=== PATIENT | male | born 1955 | race Caucasian/White ===

== ENCOUNTER 2017-08-12 22:50 | Inpatient (IN) | payer BC, MEDICAID ==
[~2017-08-12] VITALS: Ht 162.6 cm; Wt 37.2 kg
--- NOTE | 2017-08-12 23:01 | NUR ---
DR RIGOBERTO BRYANT MD AT BEDSIDE FOR MSE.
[2017-08-12] MEDS ORDERED: IV NORMAL SALINE 1000 ML BAG IV ONE (23:15)
[2017-08-12] MEDS ORDERED: LISI-603 PO (23:20)
[2017-08-12] MEDS ORDERED: NAPR-1009 PO (23:20)
[2017-08-12] MEDS ORDERED: ASPI81TA31 PO (23:20)
[2017-08-12] MEDS ORDERED: TRAM50TA2 PO (23:20)
[2017-08-12] MEDS ORDERED: METO50TA16 PO (23:20)
[2017-08-12] MEDS ORDERED: ONDA8TAB6 PO (23:20)
[2017-08-12] MEDS ORDERED: PARO20TA7 PO (23:20)
[2017-08-12] MEDS ORDERED: TAMS0.4C34 PO (23:20)
--- NOTE | 2017-08-12 23:32 | NUR ---
RADIOLOGY AT BEDSIDE FOR CHEST XRAY
[2017-08-12 23:41] LABS: BASOPHILS % (AUTO) 0.1 % (0.0-2.0); HEMATOCRIT 43.5 % (36.7-47.1); HEMOGLOBIN 14.5 g/dL (12.5-16.3); LYMPHOCYTES # (AUTO) 0.2 K/uL (20.0-40.0); LYMPHOCYTES % (AUTO) 2.2 % (20.5-51.5); MEAN CORPUSCULAR HEMOGLOBIN 27.3 uug (23.8-33.4); MEAN CORPUSCULAR HGB CONC 33 g/dL (32.5-36.3); MEAN CORPUSCULAR VOLUME 82.2 fL (73.0-96.2); MONOCYTES # (AUTO) 0.3 K/uL (2.0-10.0); MONOCYTES % (AUTO) 3.3 % (0.0-11.0); NEUTROPHILS # (AUTO) 9.4 K/uL (1.8-8.9); NEUTROPHILS % (AUTO) 94.4 % (38.5-71.5); PLATELET COUNT (AUTO) 515 K/uL (152-348); WHITE BLOOD COUNT (AUTO) 9.9 K/uL (3.6-10.2)
[2017-08-12] MEDS ORDERED: CEFTRIAXONE 1 G in IV DEXTROSE 5% 50 ML IV ONE (23:45)
[2017-08-12] MEDS ORDERED: FAMOTIDINE. 20 MG/2 ML VIAL IV ONE ×2 (23:45→23:54)
[2017-08-12] MEDS ORDERED: AZITHROMYCIN IV 500 MG in IV DEXTROSE 5% 250 ML IV ONE (23:45)
[2017-08-12] MEDS ORDERED: CEFTRIAXONE 1 G VIAL ONE (23:54)
[2017-08-12] MEDS ORDERED: AZITHROMYCIN 500 MG VIAL IV ONE (23:54)
[2017-08-13] VITALS (19 sets, daily range): BP systolic 88–140; BP diastolic 51–90
[2017-08-13 00:09] LABS: CREATININE 1.5 mg/dL (0.6-1.3); POTASSIUM 4.2 mmol/L (3.5-5.1)
--- NOTE | 2017-08-13 00:11 | NUR ---
RT AT BEDSIDE FOR BREATHING TREATMENT
[2017-08-13] MEDS ORDERED: ALBUTEROL SULFATE 2.5 MG/3 ML NEBU ONE (00:12)
[2017-08-13] MEDS ORDERED: ALBUTEROL SULFATE 2.5 MG/3 ML NEBU NEB ONE (00:15)
[2017-08-13 00:23] LABS: BILIRUBIN,DIRECT 0.2 mg/dL (0.0-0.2); BILIRUBIN,TOTAL 0.4 mg/dL (0.2-1.0); TOTAL PROTEIN, SERUM 8.3 g/dL (6.4-8.2)
--- NOTE | 2017-08-13 00:53 | NUR ---
RT AT BEDSIDE FOR SUCTIONING.
--- NOTE | 2017-08-13 01:22 | NUR ---
RT AT BEDSIDE FOR ABG.
[2017-08-13 01:37] LABS: ABG BASE EXCESS -6.9 mmol/L; ABG HCO3 17.5 mmol/L; ABG PCO2 31.7 mmHg (35.0-45.0); ABG PH 7.361 (7.350-7.450); ABG PO2 61.1 mmHg (75.0-100.0); ABG SITE RIGHT RADIAL; ABG TOTAL HEMOGLOBIN 11.8 G/dL (13.5-18.0); COHb 0.9 % (0.5-1.5); MetHb 0.5 % (0.0-1.5); O2Hb 87.9 % (94.0-97.0); VENT MODE COOL AEROSOL
--- NOTE | 2017-08-13 01:43 | NUR ---
PT USING BEDPAN INDEPENDENTLY. NO DISTRESS NOTED.
[2017-08-13] MEDS ORDERED: IV NORMAL SALINE 1000 ML BAG IV ONE (02:00)
[2017-08-13] MEDS ORDERED: IV NORMAL SALINE 100 ML ONE (02:10)
[2017-08-13] MEDS ORDERED: SWABABLE VALVE TRANSFER SET EA MC ONE (02:10)
[2017-08-13] MEDS ORDERED: IOHEXOL 350 100 ML INFUS..BTL ONE (02:10)
[2017-08-13] MEDS ORDERED: NORMAL SALINE FLUSH 10 ML DISP.SYRIN ONE (02:10)
--- NOTE | 2017-08-13 02:26 | NUR ---
PT TAKEN TO CT VIA GURNEY. CONSENT OBTAINED. NO ACUTE DISTRESS NOTED.
--- NOTE | 2017-08-13 02:51 | NUR ---
PT BACK IN ROOM FROM CT. RT AT BEDSIDE FOR SUCTIONING.
[2017-08-13] MEDS ORDERED: ENOXAPARIN SODIUM 40 MG/0.4 ML DISP.SYRIN SQ ONE ×2 (03:50→04:00)
[2017-08-13] MEDS ORDERED: VANCOMYCIN IV 1 G in PREMIXED 0 EACH IV SCH (04:00)
[2017-08-13] MEDS ORDERED: ACETAMINOPHEN 325 MG TABLET PO PRN (04:00)
[2017-08-13] MEDS ORDERED: ONDANSETRON 4 MG/2 ML VIAL IV PRN (04:00)
[2017-08-13] MEDS ORDERED: ENOXAPARIN SODIUM 40 MG/0.4 ML DISP.SYRIN SQ SCH (04:00)
--- NOTE | 2017-08-13 04:03 | NUR ---
REPORT GIVEN TO CRISTOFER MONGE.
--- NOTE | 2017-08-13 05:01 | NUR ---
Pt. admitted to CCU, under care of Dr. HAWKINS Belongs List completed
--- NOTE | 2017-08-13 05:10 | NUR ---
ADMITTED FROM ER VIA [facility] AAOX4, W/ ADMITTING DX OF SEPSIS, RESP. FAILURE.ATTACHED TO BEDSIDE MONITORING. SUCTIONED VIA TRACH W/ MOD. PALE YELLOWISH MUCOUS, ON O2 @ 60% TRACH MIST W/ O2 SAT OF 92%. REPOSITIONED W/ HOB ELEVATED.
[2017-08-13] MEDS: IV D5 1/2 NS 1000 ML 1,000 ML IV PRN ×2 (05:25→15:49)
[2017-08-13] MEDS: ENOXAPARIN SODIUM 30 MG/0.3 ML DISP.SYRIN SUBCUT SCH (05:26)
[2017-08-13] MEDS ORDERED: VANCOMYCIN 1000 MG VIAL ONE (05:28)
[2017-08-13] MEDS ORDERED: PIPERACILLIN/TAZOBACTAM/D5W 50 ML ONE (05:29)
[2017-08-13] MEDS: PIPERACILLIN/TAZO 2.25 G in IV DEXTROSE 5% 50 ML IV SCH ×4 (05:43→23:16)
[2017-08-13] MEDS ORDERED: NORMAL SALINE FLUSH 10 ML DISP.SYRIN IV PRN (06:00)
[2017-08-13] MEDS ORDERED: VANCOMYCIN IV 750 MG in IV DEXTROSE 5% 250 ML IV ONE (06:00)
--- NOTE | 2017-08-13 06:00 | NUR ---
LOVENOX NOT GIVEN @ 0600, DOSE GIVEN @ 0500 IN ER.
[2017-08-13] MEDS: ALBUTEROL SULFATE 2.5 MG/3 ML NEBU NEB SCH ×5 (07:15→23:00)
[2017-08-13] MEDS ORDERED: Z GUARD REMEDY PASTE 57 GM TUBE TOP PRN (07:15)
--- NOTE | 2017-08-13 07:30 | NUR ---
report received from Jackie CLEVELAND. 62 yr old male admitted on 08/13/17 for sepsis, resp failure. alert and communicative, has a tracheal stoma. hx of ca of the throat and HTn. IV fluid D5 1/2 NS at 125 ml/hr Addendum: 08/13/17 at 1507 by ANIL BARCENAS RN Amended: Links added.
[2017-08-13] MEDS: ACETYLCYSTEINE 20% 800 MG/4 ML VIAL NEB SCH ×3 (07:45→23:00)
--- NOTE | 2017-08-13 09:01 | NUR ---
MM MED NOT GIVEN. AM TX WAS GIVEN AT 0715. MM ORDER PLACED @ 0745
[2017-08-13] MEDS: ASPIRIN 81 MG TAB.CHEW PO SCH (09:28)
[2017-08-13] MEDS: PANTOPRAZOLE SODIUM 40 MG VIAL IV SCH (09:28)
[2017-08-13] MEDS: TRAMADOL HCL 50 MG TABLET PO SCH ×3 (09:29→17:00)
[2017-08-13] MEDS: Z GUARD REMEDY PASTE 57 GM TUBE TOP SCH ×2 (09:31→20:27)
[2017-08-13] MEDS: IV NORMAL SALINE 500 ML IV ONE ×2 (11:45→12:25)
[2017-08-13 13:43] LABS: THYROID STIMULATING HORMONE 5.319 mIU/mL (0.358-3.740)
--- NOTE | 2017-08-13 14:26 | NUR ---
Clinical pharmacy note-Vancomycin dosing per pharmacy Subjective: To start Vancomycin dosing on this patient for sepsis secondary to PNA. Objective: BUN 59 Scr 1.5 WBC 9.9 Temp 98.7 Ht 162.56 cm Wt 37.195kg(verified with nurse) Assessment/Plan: Patient was given Vancomycin 750mg IV x1 today at 0542. Since renal function is unstable, will dose by fall-off random level for now(level is due for tomorrow am). Will follow the level for further dosing.
[2017-08-13 17:04] LABS: PRE ALBUMIN 11.3 MG/DL (18.0-35.7)
--- NOTE | 2017-08-13 18:00 | NUR ---
patient very independent as far as self care but refused 1200 and 1700 meds thru gt. seen by , expressed desire to transfer patient to [facility]. referred to case folder. patient also refused to have pm care. . voiding freely to a urinal. no need to be suctioned throughout day shift.
[2017-08-13] MEDS: TAMSULOSIN HCL 0.4 MG CAP.SR.24H PO SCH ×3 (20:29→21:00)
[2017-08-14] VITALS (19 sets, daily range): BP systolic 93–134; BP diastolic 59–78
[2017-08-14] MEDS: IV D5 1/2 NS 1000 ML 1,000 ML IV PRN (01:29)
[2017-08-14] MEDS: ALBUTEROL SULFATE 2.5 MG/3 ML NEBU NEB SCH ×6 (04:07→23:06)
[2017-08-14] MEDS: PIPERACILLIN/TAZO 2.25 G in IV DEXTROSE 5% 50 ML IV SCH ×3 (05:43→16:57)
[2017-08-14 05:45] LABS: BASOPHILS % (AUTO) 0.1 % (0.0-2.0); EOSINOPHILS % (AUTO) 0.3 % (0.0-7.0); HEMATOCRIT 33.8 % (36.7-47.1); HEMOGLOBIN 11.1 g/dL (12.5-16.3); LYMPHOCYTES # (AUTO) 0.4 K/uL (20.0-40.0); MEAN CORPUSCULAR HGB CONC 33 g/dL (32.5-36.3); MEAN CORPUSCULAR VOLUME 82.1 fL (73.0-96.2); MONOCYTES # (AUTO) 0.2 K/uL (2.0-10.0); MONOCYTES % (AUTO) 2.3 % (0.0-11.0); NEUTROPHILS # (AUTO) 9.4 K/uL (1.8-8.9); NEUTROPHILS % (AUTO) 93.3 % (38.5-71.5); PLATELET COUNT (AUTO) 370 K/uL (152-348); RED BLOOD CELL COUNT(AUTO) 4.12 MIL/uL (4.06-5.63)
[2017-08-14 05:50] LABS: CREATININE 1.1 mg/dL (0.6-1.3); MAGNESIUM 1.4 mg/dL (1.8-2.4); PHOSPHOROUS 2.4 mg/dL (2.5-4.9)
[2017-08-14 06:12] LABS: POTASSIUM 2.5 mmol/L (3.5-5.1)
--- NOTE | 2017-08-14 07:15 | NUR ---
K+ 2.5 reported to Pharmacist.
[2017-08-14] MEDS: ACETYLCYSTEINE 20% 800 MG/4 ML VIAL NEB SCH ×3 (08:00→23:06)
[2017-08-14] MEDS ORDERED: VANCOMYCIN IV 500 MG in IV DEXTROSE 5% 100 ML IV ONE (08:30)
[2017-08-14] MEDS: TRAMADOL HCL 50 MG TABLET PO SCH ×4 (09:00→18:59)
[2017-08-14] MEDS: PANTOPRAZOLE SODIUM 40 MG VIAL IV SCH ×2 (09:08→09:12)
[2017-08-14] MEDS: ASPIRIN 81 MG TAB.CHEW PO SCH ×2 (09:08→09:14)
[2017-08-14] MEDS: ENOXAPARIN SODIUM 30 MG/0.3 ML DISP.SYRIN SUBCUT SCH (09:33)
[2017-08-14] MEDS ORDERED: POTASSIUM CHLORIDE 50 ML IV SCH (11:15)
[2017-08-14] MEDS ORDERED: POTASSIUM PHOSPHATE MM 5 MMOL in IV DEXTROSE 5% 100 ML IV SCH (11:15)
--- NOTE | 2017-08-14 11:30 | NUR ---
seen by dr sanchez with new orders Addendum: 08/14/17 at 1941 by ANIL BARCENAS RN Amended: Daniel added. Addendum: 08/14/17 at 1943 by ANIL BARCENAS RN Amended: Daniel added. Addendum: 08/14/17 at 1944 by ANIL BARCENAS RN Amended: Links added.
--- NOTE | 2017-08-14 12:00 | NUR ---
seen by dr curtis with new orders Addendum: 08/14/17 at 1944 by ANIL BARCENAS RN Amended: Links added.
[2017-08-14] MEDS ORDERED: POTASSIUM CHLORIDE 20 MEQ POWDER PACKET PO ONE ×2 (12:43→15:00)
[2017-08-14] MEDS: MAGNESIUM SULFATE/D5W 100 ML IV SCH ×3 (13:16→21:14)
[2017-08-14] MEDS: POTASSIUM CHLORIDE 40 MEQ in IV D5 1/2 NS 1000 ML 1,000 ML IV PRN (14:17)
[2017-08-14] MEDS: POTASSIUM PHOSPHATE MM 5 MMOL in IV DEXTROSE 5% 100 ML IV SCH ×4 (14:39→21:05)
[2017-08-14] MEDS: Z GUARD REMEDY PASTE 57 GM TUBE TOP SCH ×2 (14:42→21:06)
--- NOTE | 2017-08-14 15:00 | NUR ---
seen by dr ames. no orders. prefers to keep patient in CCU till bronchoscopy plan Addendum: 08/14/17 at 1942 by ANIL BARCENAS RN Amended: Links added. Addendum: 08/14/17 at 1943 by ANIL BARCENAS RN Amended: Links added.
--- NOTE | 2017-08-14 16:10 | NUR ---
Clinical pharmacy note-Vancomycin dosing per pharmacy Subjective: To continue Vancomycin dosing on this patient for sepsis secondary to PNA. Objective: BUN 24 Scr 1.1 WBC 10.0 Temp 97.4 Ht 162.56 cm Wt 37.195kg(verified with nurse) Vancomycin random today at 0600:6.7 Assessment/Plan: Since trough is subtherapeutic, [id number] was given today at 0915. Will continue to dose by fall-off random level for now due to unstable renal function(ordered for tomorrow at 0600). Will follow the level for further dosing.
--- NOTE | 2017-08-14 19:30 | NUR ---
rounds made patient in bed ,resting aaox4.able to communicate by hand sign and writing ,patient at bedside help with care . resisted ivf helpocik its leaking place another ivf access to his right upper arm # 22,urinal placed with in reach .
[2017-08-14 19:43] LABS: *BILIRUBIN,URIN NEGATIVE (NEGATIVE); *BLOOD, URINE Trace-intact (NEGATIVE); *CLARITY,URINE CLEAR (CLEAR); *COLOR,URINE YELLOW (YELLOW); *KETONES,URINE NEGATIVE (NEGATIVE); *PROTEIN,URINE TRACE (NEGATIVE); *UROBILINOGEN,URINE 0.2 E.U./dl (NORMAL); LEUKOCYTE ESTERASE ,URINE NEGATIVE (NEGATIVE); NITRITE, URINE NEGATIVE (NEGATIVE); PH,URINE 6.5 (5.0-8.0); UGLUCOSE NEGATIVE (NEGATIVE)
[2017-08-14 19:50] LABS: RBC,URINE 0-3 /HPF (0-3); WBC,URINE 0-3 /HPF (0-3)
[2017-08-14 19:51] LABS: COARSE GRANULAR CASTS,URINE 0-3 /LPF; MUCUS,URINE FEW /LPF (0-FEW)
[2017-08-14] MEDS: TAMSULOSIN HCL 0.4 MG CAP.SR.24H PO SCH (21:00)
--- NOTE | 2017-08-14 21:14 | NUR ---
given magnesium sulfate total of 3 bags .
[2017-08-14] MEDS ORDERED: MAGNESIUM SULFATE/D5W 100 ML ONE (21:17)
[2017-08-15] VITALS (16 sets, daily range): BP systolic 116–141; BP diastolic 59–96
--- NOTE | 2017-08-15 02:00 | NUR ---
with another RN changed soiled linens and gown . z guard applied to sacral area .turned and reposition .hob up and elevated upper and lower extremities with pillows .
[2017-08-15] MEDS: PIPERACILLIN/TAZO 2.25 G in IV DEXTROSE 5% 50 ML IV SCH ×3 (02:50→12:25)
[2017-08-15] MEDS: POTASSIUM CHLORIDE 40 MEQ in IV D5 1/2 NS 1000 ML 1,000 ML IV PRN ×2 (02:51→20:57)
[2017-08-15] MEDS: ALBUTEROL SULFATE 2.5 MG/3 ML NEBU NEB SCH ×7 (03:52→23:11)
--- NOTE | 2017-08-15 04:08 | NUR ---
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 Marianna LERMA RCP Addendum: 08/15/17 at 0410 by BRIE LERMA RT Amended: Links added.
--- NOTE | 2017-08-15 04:47 | NUR ---
patient refused lab draw /am labs . even with teaching ,will follow up later and asked stretcher drier operator to come back later .
[2017-08-15] MEDS: ACETYLCYSTEINE 20% 800 MG/4 ML VIAL NEB SCH ×4 (07:34→23:11)
--- NOTE | 2017-08-15 07:54 | NUR ---
PATIENT REFUSED CPT PER RT.
--- NOTE | 2017-08-15 09:30 | NUR ---
MORTEZA IN UNIT TO SEE PATIENT.
[2017-08-15] MEDS: TRAMADOL HCL 50 MG TABLET PO SCH ×4 (09:51→17:00)
[2017-08-15] MEDS: Z GUARD REMEDY PASTE 57 GM TUBE TOP SCH ×2 (09:51→21:08)
[2017-08-15] MEDS: ENOXAPARIN SODIUM 40 MG/0.4 ML DISP.SYRIN SQ SCH (09:52)
--- NOTE | 2017-08-15 10:00 | NUR ---
DOCTOR PRO SPOKE TO PATIENT REGARDING REFUSAL OF CARE. PATIENT ALLOWED FOR CHEST XRAY AND LAB DRAWS.
[2017-08-15 11:06] LABS: BASOPHILS % (AUTO) 0.1 % (0.0-2.0); EOSINOPHILS # (AUTO) 0.1 K/uL (0.0-0.7); EOSINOPHILS % (AUTO) 0.8 % (0.0-7.0); HEMATOCRIT 34.6 % (36.7-47.1); HEMOGLOBIN 11.3 g/dL (12.5-16.3); LYMPHOCYTES # (AUTO) 0.5 K/uL (20.0-40.0); LYMPHOCYTES % (AUTO) 4.7 % (20.5-51.5); MEAN CORPUSCULAR HEMOGLOBIN 26.7 uug (23.8-33.4); MEAN CORPUSCULAR HGB CONC 33 g/dL (32.5-36.3); MEAN CORPUSCULAR VOLUME 81.5 fL (73.0-96.2); MONOCYTES # (AUTO) 0.3 K/uL (2.0-10.0); MONOCYTES % (AUTO) 2.5 % (0.0-11.0); NEUTROPHILS % (AUTO) 91.9 % (38.5-71.5); PLATELET COUNT (AUTO) 385 K/uL (152-348); RED BLOOD CELL COUNT(AUTO) 4.25 MIL/uL (4.06-5.63); WHITE BLOOD COUNT (AUTO) 10.9 K/uL (3.6-10.2)
[2017-08-15 11:49] LABS: CREATININE 0.8 mg/dL (0.6-1.3); PHOSPHOROUS 2.3 mg/dL (2.5-4.9); POTASSIUM 3.7 mmol/L (3.5-5.1)
--- NOTE | 2017-08-15 12:04 | NUR ---
BOTH PATIENT AND WILL REFUSE BRONCHOSCOPY IF NEEDED.
[2017-08-15] MEDS ORDERED: VANCOMYCIN IV 500 MG in IV DEXTROSE 5% 100 ML IV ONE (13:00)
[2017-08-15] MEDS ORDERED: POTASSIUM PHOSPHATE MM 7.5 MMOL in IV DEXTROSE 5% 100 ML IV ONE (13:15)
--- NOTE | 2017-08-15 13:23 | NUR ---
PT's at bedside and she's refusing her to get scheduled Ultram. when pt informed that schedule ultram is about to be administered patient agreed. Medications not administered and wasted cause it was open and crushed already when refused.
--- NOTE | 2017-08-15 14:00 | NUR ---
DOCTOR BUNNY IN THE UNIT SPOKE TO BOTH PATIENT AND REGARDING UPDATE AND PLAN OF CARE.
--- NOTE | 2017-08-15 14:42 | NUR ---
Clinical pharmacy note-Vancomycin dosing per pharmacy Subjective: To continue Vancomycin dosing on this patient for sepsis secondary to PNA. Objective: BUN 9 Scr 0.8 WBC 10.9 Temp 97.8 Ht 162.56 cm Wt 37.195kg(verified with nurse) [place] [address](originally ordered at 0600 but patient refused):5.8 Assessment/Plan: Since trough is under 20, Vancomycin [id number] was given today at 1300. Will start Vancomycin 500mg IV every 18hrs(second dose tomorrow at 0700) and draw trough by 4th dose(not ordered yet) for expected trough around 15. Will monitor daily.
--- NOTE | 2017-08-15 17:17 | NUR ---
REPORT GIVEN TO LORENE CLEVELAND.
[2017-08-15] MEDS ORDERED: VITAL AF 1.2 1,000 ML LIQUID GT PRN (17:30)
[2017-08-15] MEDS: PIPERACILLIN/TAZOBACTAM/D5W 50 ML IV SCH ×2 (17:33→23:53)
--- NOTE | 2017-08-15 18:30 | NUR ---
RECEIVED PATIENT TRANSFER FROM CCU 62 YEARS OLD MALE BY BED TO ROOM 217 FIXED AND MADE COMFORTABLE PATIENT IS ALERT AND ORIENTED BUT IS NON VERBAL USES HIS HANDS/GESTURES AND WRITING TO MAKE HIS NEEDS KNOWN ON COOL MIST AEROSOL WITH NO SHORTNESS OF BREATH AT THIS TIME. JESÚS UP WITH GT FEEDINGS AT 20 ML/HR TOLERATING WELL WITH NO REGURGITATION AT THIS TIME.IVF IS IN PROGRESS ORDERED.PATIENT ORIENTED TO ROOM AND MED/SURG/TELEMETRY PROTOCOL AND EXPRESSED UNDERSTANDING TELEMETRY ORDERED SR WITH NO ECTOPY NOT IN DISTRESS AT THIS TIME.
--- NOTE | 2017-08-15 20:00 | NUR ---
Received patient laying comfortably in bed. HOB elevated. No acute distress noted. Denies pain or SOB. Family at bedside. A/O x 3 but unable to talk due to a hx of laryngectomy. He makes his needs known by writing on the board or making hand gestures and blinks eye. Patient is on cool mist aerosol. TELE SR. IV on the left FA patent and intact. On air mattress. Lau draining yellow and clear urine. Safety initiated. Call light within reach. Will closely monitor.
[2017-08-15] MEDS: TAMSULOSIN HCL 0.4 MG CAP.SR.24H PO SCH (20:57)
[2017-08-16 00:07] VITALS: BP 125/91
[2017-08-16] MEDS: ALBUTEROL SULFATE 2.5 MG/3 ML NEBU NEB SCH ×6 (03:02→23:21)
[2017-08-16] MEDS: PIPERACILLIN/TAZOBACTAM/D5W 50 ML IV SCH ×3 (05:16→17:16)
--- NOTE | 2017-08-16 05:32 | NUR ---
Patient slept intermittently t/o shift. HOB remains elevated. No acute distress noted. Denies pain or SOB. A/O x 3 but unable to talk due to a hx of laryngectomy. He makes his needs known by writing on the board or making hand gestures and blinks eye. Patient has a neck stoma that appears pink and moist. NPO status maintained. Patient is on cool mist aerosol. TELE SR. IV on the left FA patent and intact. On air mattress. Patient's urine out put is ok. He urinates on the urinal. Refused flomax. Vital signs stable. Safety and comfort measures maintained t/o shift. All meds given as ordered. All needs met. Bed alarm on. Bed in low and locked position.
[2017-08-16 06:11] VITALS: BP 131/80
[2017-08-16 06:40] LABS: BASOPHILS % (AUTO) 0.2 % (0.0-2.0); EOSINOPHILS # (AUTO) 0.1 K/uL (0.0-0.7); HEMOGLOBIN 12.1 g/dL (12.5-16.3); LYMPHOCYTES # (AUTO) 0.5 K/uL (20.0-40.0); LYMPHOCYTES % (AUTO) 3.9 % (20.5-51.5); MEAN CORPUSCULAR HEMOGLOBIN 26.9 uug (23.8-33.4); MEAN CORPUSCULAR HGB CONC 33 g/dL (32.5-36.3); MEAN CORPUSCULAR VOLUME 82.2 fL (73.0-96.2); MONOCYTES # (AUTO) 0.3 K/uL (2.0-10.0); MONOCYTES % (AUTO) 2.9 % (0.0-11.0); NEUTROPHILS # (AUTO) 11.2 K/uL (1.8-8.9); PLATELET COUNT (AUTO) 377 K/uL (152-348); WHITE BLOOD COUNT (AUTO) 12.1 K/uL (3.6-10.2)
[2017-08-16] MEDS: PANTOPRAZOLE SODIUM 40 MG VIAL IV SCH (06:45)
--- NOTE | 2017-08-16 06:45 | NUR ---
Patient refused protonix IV. Noted left cheek redness. Mepilex in place. Turn and reposition Q2H. Will closely monitor.
[2017-08-16 06:55] LABS: CREATININE 0.9 mg/dL (0.6-1.3); MAGNESIUM 1.9 mg/dL (1.8-2.4); PHOSPHOROUS 2.6 mg/dL (2.5-4.9); POTASSIUM 4.2 mmol/L (3.5-5.1)
[2017-08-16] MEDS ORDERED: VANCOMYCIN IV 500 MG in IV DEXTROSE 5% 100 ML IV SCH (07:00)
--- NOTE | 2017-08-16 07:00 | NUR ---
CONTINUE CURRENT TX PLAN. PER CLAIM TAKER AWATING TRANSFER TO ANOTHER HOSPITAL
[2017-08-16] MEDS: ACETYLCYSTEINE 20% 800 MG/4 ML VIAL NEB SCH ×3 (07:43→23:22)
[2017-08-16] MEDS: TRAMADOL HCL 50 MG TABLET PO SCH ×3 (08:33→17:00)
[2017-08-16] MEDS: ASPIRIN 81 MG TAB.CHEW PO SCH (08:34)
[2017-08-16] MEDS: ENOXAPARIN SODIUM 40 MG/0.4 ML DISP.SYRIN SQ SCH (08:35)
[2017-08-16] MEDS: Z GUARD REMEDY PASTE 57 GM TUBE TOP SCH ×2 (08:37→21:00)
--- NOTE | 2017-08-16 09:00 | NUR ---
SEEN BY DR PRO AWARE OF PATIENT REFUSING BRONCHOSCOPY
[2017-08-16 10:17] LABS: BILIRUBIN,DIRECT 0.2 mg/dL (0.0-0.2); BILIRUBIN,TOTAL 0.4 mg/dL (0.2-1.0)
[2017-08-16 11:16] VITALS: BP 107/81
--- NOTE | 2017-08-16 11:56 | NUR ---
REPORT GIVEN TO RECEIVING RN
--- NOTE | 2017-08-16 12:00 | NUR ---
Received report from morning nurse. Pt. is noted to be stable, non-verbal. No immediate s/s of SOB, pain, distress or discomfort.
--- NOTE | 2017-08-16 13:00 | NUR ---
Pt refused his 1300 scheduled tramadol, explained to pt about the medication and he still refused. pt waved with his hand that he didn't want it. Kept tramadol in case pt changed his mind
--- NOTE | 2017-08-16 14:34 | NUR ---
PT MD ORDER PT FIO2 WAS TITRATED DOWN TO 30% AT THIS TIME PT TOLERATED WELL NO DISTRESS NOTED WILL CONTINUE TO MONITOR PT. RN AWARE.
[2017-08-16 16:25] VITALS: BP 94/73
--- NOTE | 2017-08-16 17:10 | NUR ---
Pt refused his 1700 scheduled Tramadol. Pt made hand signs that he didn't need it or want it. This Tramadol was still from the 1300 hrs scheduled Tramadol. Explained to the pt the medication and offered three times and asked if he was sure. Pt still made hand signs that he was refusing Tramadol. Dose was returned and witnessed by charge nurse.
[2017-08-16 19:57] VITALS: BP 108/82
--- NOTE | 2017-08-16 20:00 | NUR ---
PATIENT IS AWAKE IN BED ALERT AND ORIENTED APHASIC ABLE TO EXPRESS NEEDS WITH WRITING PAD. HE DENIES PAIN, NO SOB ON ASSESSMENT. G-TUBE SITE IS CLEAN WITH NO S/S OF INFECTION. PLACEMENT CHECKED NO RESIDUAL. NO FEVER AT PRESENT. ASPIRATION PRECAUTION AND SAFETY MEASURES IN PLACE. CALL LIGHT WITHIN PATIENT'S REACH
[2017-08-16] MEDS: TAMSULOSIN HCL 0.4 MG CAP.SR.24H PO SCH (21:00)
[2017-08-17] MEDS: PIPERACILLIN/TAZOBACTAM/D5W 50 ML IV SCH ×3 (00:34→12:17)
[2017-08-17] MEDS: ALBUTEROL SULFATE 2.5 MG/3 ML NEBU NEB SCH ×4 (02:42→15:30)
[2017-08-17 04:00] VITALS: BP 115/80
[2017-08-17] MEDS ORDERED: PANTOPRAZOLE ORAL SUSPENSION 40 MG SUSPDR.PKT GT SCH (06:00)
--- NOTE | 2017-08-17 06:19 | NUR ---
PATIENT SLEPT ON AND OFF THROUGHOUT THE SHIFT. REFUSED ALL HIS SCHEDULED MEDS. NO ACUTE DISTRESS OR C/O PAIN ON THIS SHIFT. VSS WNL, NO FEVER. ASPIRATION AND SAFETY MEASURES MAINTAINED AT ALL TIMES. NO FURTHER CHANGES IN STATUS AT PRESENT.
[2017-08-17] MEDS: ACETYLCYSTEINE 20% 800 MG/4 ML VIAL NEB SCH ×2 (07:24→15:30)
[2017-08-17] MEDS: TRAMADOL HCL 50 MG TABLET PO SCH ×3 (08:19→14:43)
[2017-08-17] MEDS: ASPIRIN 81 MG TAB.CHEW PO SCH (08:20)
[2017-08-17] MEDS: ENOXAPARIN SODIUM 40 MG/0.4 ML DISP.SYRIN SQ SCH (08:20)
[2017-08-17] MEDS: Z GUARD REMEDY PASTE 57 GM TUBE TOP SCH (08:32)
[2017-08-17] MEDS ORDERED: ACID1TAB4 GT (10:47)
[2017-08-17] MEDS ORDERED: LEVO500T2 GT (10:47)
--- NOTE | 2017-08-17 13:00 | NUR ---
PT REFUSED MEDICATION TRAMADOL, HE WROTE ON HIS PAD " NO THANK YOU, I DON'T NEED IT".
--- NOTE | 2017-08-17 14:50 | NUR ---
TRAMADOL GIVEN TO PT C/O 10/22 PAIN IN ABDOMEN. CONTINUE TO MONITOR PT.
[2017-08-17 15:26] VITALS: BP_SYST 86; BP_SYST 89; BP_DIAS 59
--- NOTE | 2017-08-17 17:35 | NUR ---
PT D/C WITH VIA PRIVATE CAR, PT STABLE TO D/C, CALM, COOPERATIVE, D/C WITH EXIT CARE PACKET, PRESCRIPTIONS, PT REFUSED PICTURES TO BE TAKEN. AND PT REFUSED TO HAVE A FOLLOW UP APPOINTMENT MADE FOR THEM AND STATE THAT THEY WILL DO IT THEM SELVES. WOULD LIKE MEDICAL RECORDS SENT TO THE PT'S PCP. AUTHORIZATION FORM WAS SIGNED AND SENT DOWN WITH CHART TO MEDICAL RECORDS. [employer] IS PATENT AND CLEAN.
[2017-08-17 17:43] VITALS: BP 89/61
== END 2017-08-17 17:05 | disposition home or self-care (01) | DRG 720 ==
LOC: ER 22:51 → CCU 08-13 04:08 → TELE 08-15 18:10
PROVIDERS: ADMIT Internal Medicine; ATTEND Internal Medicine
DX: A41.9 Sepsis, unspecified organism (principal); I21.A1 Myocardial infarction type 2; J96.01 Acute respiratory failure with hypoxia; N17.0 Acute kidney failure with tubular necrosis; J69.0 Pneumonitis due to inhalation of food and vomit; Z93.0 Tracheostomy status; I42.7 Cardiomyopathy due to drug and external agent; E43 Unspecified severe protein-calorie malnutrition; E86.0 Dehydration; I50.23 Acute on chronic systolic (congestive) heart failure; R13.10 Dysphagia, unspecified; R65.20 Severe sepsis without septic shock; Z93.1 Gastrostomy status; E78.5 Hyperlipidemia, unspecified; T17.590A Other foreign object in bronchus causing asphyxiation, initial encounter; X58.XXXA Exposure to other specified factors, initial encounter; Y92.019 Unspecified place in single-family (private) house as the place of occurrence of the external cause; Z85.21 Personal history of malignant neoplasm of larynx; Z92.3 Personal history of irradiation; Z92.21 Personal history of antineoplastic chemotherapy; I11.0 Hypertensive heart disease with heart failure; I25.10 Atherosclerotic heart disease of native coronary artery without angina pectoris; T45.1X5A Adverse effect of antineoplastic and immunosuppressive drugs, initial encounter; I25.5 Ischemic cardiomyopathy; K21.9 Gastro-esophageal reflux disease without esophagitis; N40.0 Benign prostatic hyperplasia without lower urinary tract symptoms; J98.11 Atelectasis; E87.6 Hypokalemia; Z68.1 Body mass index [BMI] 19.9 or less, adult; E03.9 Hypothyroidism, unspecified; Z87.891 Personal history of nicotine dependence; Z79.899 Other long term (current) drug therapy; J44.9 Chronic obstructive pulmonary disease, unspecified; E87.2 Acidosis; I77.4 Celiac artery compression syndrome; M47.9 Spondylosis, unspecified; B96.5 Pseudomonas (aeruginosa) (mallei) (pseudomallei) as the cause of diseases classified elsewhere
CPT/HCPCS: 36415; 36600; 70030-TC; 71045; 71275; 83605; 83735; 84100; 84443; 85025; 85730; 86140; 87040; 87070; 87077; 87086; 93005; 93307; 94640; 94664; A4217; A4663; C9113; J0456; J0696; J1650; J2543; J3370; J3475; J3480; J3490; J7030; J7040; J7050; J7060; Q9967